=== PATIENT | male | born 1945 | race Caucasian/White ===

== ENCOUNTER → 2019-05-04 12:01 | Day surgery (SDC) | payer MEDICARE ==
[~2019-05-04 12:01] MED LIST: Acetaminophen IV 1GM/100ML * 1,000 MG/100 ML VIAL IVPB PRN; Acetaminophen TAB* 325 MG ONE; Acetaminophen TAB* 325 MG PO ONE; Buffered Lidocaine 1% SYRIN* 1 ML/SYRINGE INTRADERM ONE; Bupivacaine 0.25% SDV PF* 10 ML VIAL INJ ONE; Bupivacaine 0.25% W/EPI* 10 ML SDV ONE; Dexamethasone IV* 4 MG/ML 1 ML (4 MG) ONE; DiMENhydriNATE IV* 50 MG/ML VIAL IV PUSH PRN; EPHEDrine (Pressors)* 50 MG/ML VIAL ONE; Gabapentin CAP(*) 300 MG ONE; Gabapentin CAP(*) 300 MG PO ONE; Glycopyrrolate IV* 0.2 MG/ML 1 ML VIAL ONE; HYDROmorphone INJ1* 1 MG/ML SYRINGE ONE; Ketorolac INJ* 30 MG/ML 1 ML VIAL ONE; Lactated Ringers 1000 ML Bag* 1,000 ML IV SCH; Levalbuterol 0.63MG/3ML NEB* UNIT OF USE INH PRN; Lidocaine 2% PF * 5 ML VIAL ONE; Midazolam* 1 MG/ML 2 ML VIAL (2 MG) ONE; Naloxone* 0.4 MG/ML 1 ML VIAL IV PRN; Ondansetron INJ* 2 MG/ML VIAL IV PRN; Ondansetron INJ* 2 MG/ML VIAL ONE; Propofol* 10 MG/ML 20 ML BTL ONE; ceFAZolin 2 GM in NS PREMIX(*) 2 GM/100 ML BAG IVPB ONE; diPHENhydraMINE IV* 50 MG/ML 1 ml VIAL (BENADRYL) IV PRN; fentaNYL* 50 MCG/ML 2 ML VIAL (100 MCG VIAL) IV PRN; fentaNYL* 50 MCG/ML 2 ML VIAL (100 MCG VIAL) ONE; oxyCODONE TAB* 5 MG TAB PO PRN; oxyCODONE/Acetamin 5/325 MG* TAB PO PRN
[2019-05-04 19:32] VITALS: BP 125/72
--- NOTE | 2019-05-04 22:16 | OP ---
DATE OF OPERATION: 05/04/19 - [facility] DATE OF : 47 SURGEON: Harrison Sewell MD ELECTRICAL JOURNEYMAN: ARIELLA Callahan. An employment legal assistant was needed for the procedure to aid in positioning of the arm and retraction. ANESTHESIOLOGIST: Dr. Courtney. ANESTHESIA: General. PRE-OP DIAGNOSES: 1. Left shoulder rotator cuff tear. 2. Left shoulder acromioclavicular degenerative joint disease. POST-OP DIAGNOSES: 1. Left shoulder V-type rotator cuff tear. 2. Left shoulder acromioclavicular degenerative joint disease. OPERATIVE PROCEDURE: 1. Left shoulder arthroscopic debridement of glenohumeral joint subacromial space. 2. Left mini-open rotator cuff repair with Nguyen and Nephew Regenyx suture anchors. 3. Left shoulder open distal clavicle excision. INDICATION: Zachary has had the tear probably back in August. He came in and saw me a couple of months ago. It has been persistently painful. He decided to ultimately proceed with surgery. ESTIMATED BLOOD LOSS: 50 mL. COMPLICATIONS: None. FINDINGS: He had a large V-shaped tear in the anterior to middle third of the rotator cuff. DESCRIPTION OF PROCEDURE: Zachary was seen in the preoperative holding area. The correct site, side, and procedure were identified. We came back to the operating room. He was positioned in the beech chair position. Once we had padded all the ahmadi prominences and made sure the head was well secured, we went ahead and prepped and draped the arm in the usual fashion. I went ahead and made a standard posterior arthroscopic portal in the typical location. The glenohumeral joint was cannulated. The camera was introduced. There was a lot of degenerative tissue in the glenohumeral joint noted. I did an outside-in technique to create an anterior portal and a 5.5 mm cannula was introduced into the rotator interval. A shaver was brought in as well as a radiofrequency ablator. All the degenerative tissue was debrided. Free edges of the labrum were debrided. Once I had the glenohumeral joint looking nice and clean, a large rotator cuff tear was noted. The biceps tendon looked fine. The subscap insertion looked fine. I then went up to the subacromial space and did a little debridement there. I then turned my attention to the rotator cuff repair. I made a 3 to 4 cm about a centimeter posterior to the anterior corner of the acromion. Dissection was carried down and full-thickness flaps were raised off the deltoid fascia. I made a deltoid split and placed the Kolbel retractor. I completed the subacromial bursectomy with the Metzenbaum scissors. A large V- shaped tear was noted in the rotator cuff, it extended back proximally a good 2 to 3 cm. The anterior cuff was with a reasonable integrity. The posterior cuff was really good. I debrided back the bulbous edge where it had torn and freshened up the bony footprint with the curette and the rongeur. I then utilized a double row repair. I placed my medial Nguyen and Nephew Regenyx anchors a centimeter apart right at the medial edge of the footprint of the rotator cuff tendon. I then passed my sutures in standard fashion using the arthroscopic suture passer. I then used my two Push-Lock type anchors laterally. These were placed in the correct position about 1 to 1.5 cm lateral to the medial row and appropriate tension was set as the rotator cuff was repaired down to its footprint. Prior to doing this, I had placed a couple of [id number] suture anchors and repaired the more proximal yjud-eo-mzaa component with [id number] sutures. After the rotator cuff repair was done and looking good, I closed the deltoid fascia with 2-0 Vicryl suture. Subcutaneous tissue was reapproximated with 2-0 Vicryl suture. The skin was closed with 3-0 nylon as were all the arthroscopic portals. Lastly, I made a 3 cm incision over the AC joint. Dissection was carried down. Full-thickness flaps were raised off the superior acromioclavicular ligaments. I made a longitudinal split in the ligament. I released the soft tissue around the end of the clavicle bone. A couple of baby Hohmann retractors were placed. The sagittal saw was used to excise the distal 1 cm clavicle. I put some bone wax in the cancellous bed of the bone. We obtained hemostasis. The wound was irrigated out. The superior AC ligaments were repaired with 2-0 Vicryl suture. Skin was closed with 3-0 nylon suture. 0.25% Marcaine was infiltrated all about the operative area. The wounds were all dressed with Xeroform, 4x4s, ABDs, and foam tape. An abduction splint was placed. He was then woken up and taken to the recovery room in stable condition. [id number]/[facility] #: [id number] JUSTIN
== END | disposition home or self-care (01) ==
LOC: OR 12:01
PROVIDERS: ATTEND Orthopaedic Surgery Hand Surgery
DX: S46.002A Unspecified injury of muscle(s) and tendon(s) of the rotator cuff of left shoulder, initial encounter (principal); M19.012 Primary osteoarthritis, left shoulder; X58.XXXA Exposure to other specified factors, initial encounter; Y92.9 Unspecified place or not applicable; Z72.0 Tobacco use; E78.5 Hyperlipidemia, unspecified; R03.0 Elevated blood-pressure reading, without diagnosis of hypertension
CPT/HCPCS: A9270-GY; C1713; J0690; J1100; J1170; J1885; J2250; J2405; J2704; J3010; J3490